=== PATIENT | female | born 1965 | race Two or more races ===

== ENCOUNTER 2016-08-22 23:03 | Emergency (ER) | payer OTHER ==
[~2016-08-22] VITALS: Ht 172.7 cm; Wt 99.8 kg
[2016-08-22 23:15] VITALS: BP 126/73
== END 2016-08-23 05:20 | disposition left against medical advice (07) ==
LOC: ER 23:03 → EDBD 23:03 → ER 08-23 05:20
DX: F10.10 Alcohol abuse, uncomplicated (principal); Z53.21 Procedure and treatment not carried out due to patient leaving prior to being seen by health care provider